=== PATIENT | female | born 1980 | race African-American/Black ===

== ENCOUNTER 2017-06-02 14:20 | Observation (INO) ==
[2017-06-02] MEDS ORDERED: SODIUM CHLORIDE 0.9% 500 ML IV STA (15:17)
[2017-06-02] MEDS ORDERED: levETIRAcetam 500 MG/5 ML VIAL IV ONE (16:17)
[2017-06-02 16:41] LABS: Apearance,Urine CLEAR (Clear); Bilirubin,Urine Negative (Negative); Blood, Urine Negative (Negative); Glucose,Urine (UA) Negative (Negative); Ketones,Urine Negative (Negative); Mucus,Urine Occasional /LPF (Occasional); Nitrite,Urine Negative (Negative); Protein,Urine Negative; RBC,Urine 1 /HPF (0-4); Squamous Epithelial Cell,Urine Occasional /HPF (0-10); Urine Color Yellow (Yellow); Urine Urobilinogen < 2.0 EU/DL (0.2-1.0); WBC,Urine 1 /HPF (0-6)
[2017-06-02 16:47] LABS: Barbiturates Screen,Urine Negative (Negative); Benzodiazepines Screen,Urine Negative (Negative); Cannabinoid Screen,Urine Negative (Negative); Opiate Screen,Urine Negative (Negative); Phencyclidine Screen,Urine Negative (Negative)
[2017-06-02 18:24] LABS: Basophils # 0.1 10*3/uL (0.0-0.2); Basophils % 0.9 % (0.0-0.8); Eosinophils % 0.4 % (0.00-10.9); Hematocrit 37.5 VOL% (35.7-47.0); Hemoglobin 12.8 GM/DL (12.0-16.0); Immature Granulocytes % 0.4 %; Immature Granulocytes Absolute 0.02 #; Lymphocytes # 1.6 10*3/uL (1.4-4.0); Lymphocytes % 30.4 % (21.3-54.2); Mean Corpuscular HGB Conc 34.1 GM/DL (32-36); Mean Corpuscular Hemoglobin 29 PG (27-34); Mean Corpuscular Volume 86.2 FL (87-102); Mean Platelet Volume 11.2 FL (9.6-12.0); Monocytes # 0.3 10*3/uL (0.11-0.8); Monocytes % 5.3 % (1.7-12.7); Neutrophils # 3.3 10*3/uL (1.4-7.4); Neutrophils % 62.6 % (38.7-73.9); Platelet Count 215 T/CUMM (130-400); Red Blood Count 4.35 MC/CUMM (3.8-5.5); Red Cell Distribution Width 12.8 % (9.3-17.3); White Blood Count 5.3 T/CUMM (4-12)
[2017-06-02 18:43] LABS: Alanine Aminotransferase 23 U/L (13-56); Albumin 3.3 G/DL (3.4-5.0); Alkaline Phosphatase 59 U/L (45-117); Aspartate Amino Transferase 17 U/L (0-37); Bilirubin,Total < 0.39 MG/DL (0.2-1.0); Blood Urea Nitrogen 8 MG/DL (7-18); Calcium 8.6 MG/DL (8.5-10.1); Glucose 91 MG/DL (74-106); Potassium 3.8 MMOL/L (3.5-5.1); Sodium 143 MMOL/L (136-145); Total Protein 6.5 G/DL (6.4-8.3)
[2017-06-02] MEDS ORDERED: ONDANSETRON 4 MG/2 ML VIAL IV PRN (19:35)
[2017-06-02] MEDS ORDERED: LORazepam 2 MG/1 ML VIAL IV PRN (19:37)
[2017-06-02] MEDS: levETIRAcetam 500 MG TABLET PO SCH (22:46)
[2017-06-03] MEDS: levETIRAcetam 500 MG TABLET PO SCH (08:30)
[2017-06-03 11:58] VITALS: BP 132/93
[2017-06-03] MEDS ORDERED: BENZTROPINE 2 MG/2 ML AMP IM PRN (14:54)
[2017-06-03] MEDS ORDERED: DOCUSATE SODIUM 100 MG CAPSULE PO SCH (21:00)
[2017-06-03] MEDS ORDERED: risperiDONE 1 MG TABLET PO SCH (21:00)
[2017-06-03] MEDS ORDERED: LACOSAMIDE 50 MG TABLET PO SCH (21:00)
[2017-06-03] MEDS ORDERED: LORazepam 1 MG TABLET PO SCH (21:00)
[2017-06-03] MEDS ORDERED: levETIRAcetam 500 MG TABLET PO SCH (21:00)
[2017-06-04] MEDS ORDERED: OLANZapine 5 MG TABLET PO SCH (09:00)
[2017-06-04] MEDS ORDERED: ASPIRIN CHEW 81 MG TABLET PO SCH (09:00)
[2017-06-04] MEDS ORDERED: CLOPIDOGREL 75 MG TABLET PO SCH (09:00)
== END 2017-06-03 16:10 ==
LOC: EDBD → EDUNIT# → N.ED 14:20 → N.EDINP 14:20 → N.5E 20:11
PROVIDERS: ADMIT Hospitalist; ATTEND Hospitalist